=== PATIENT | female | born 1985 | race African-American/Black ===

== ENCOUNTER 2017-12-23 12:21 | Emergency (ER) | payer OTHER ==
[~2017-12-23] VITALS: Ht 162.6 cm; Wt 72.6 kg
[2017-12-23] MEDS ORDERED: KETOROLAC TROMETHAMINE 60 MG/2 ML VIAL IM ONE (12:30)
[2017-12-23] MEDS ORDERED: HYDROCODONE/APAP 10MG-325MG TAB PO ONE (12:30)
[2017-12-23] MEDS ORDERED: CYCLOBENZAPRINE HCL 10 MG TAB PO ONE (12:30)
[2017-12-23 13:12] LABS: CLARITY,URINE CLOUDY (CLEAR); COLOR,URINE YELLOW (YELLOW)
[2017-12-23 13:13] LABS: BILIRUBIN,URINE NEGATIVE (NEGATIVE); KETONES,URINE NEGATIVE (NEGATIVE); LEUKOCYTE ESTERASE ,URINE 2+ (NEGATIVE); NITRITE,URINE NEGATIVE (NEGATIVE); PROTEIN,URINE DIPSTICK 1+ (NEGATIVE); URINE UROBILINOGEN 1 mg/dL (0.2 - 1)
[2017-12-23 13:14] LABS: PREGNANCY TEST, URINE NEGATIVE (NEGATIVE)
[2017-12-23 13:22] LABS: BACTERIA,URINE MANY /HPF; EPITHELIAL CELLS,URINE FEW /LPF; WBC,URINE (MAN) >50 /HPF (0-5)
[2017-12-23 13:23] LABS: TRICHOMONAS,URINE MODERATE
== END 2017-12-23 13:43 | disposition left against medical advice (07) ==
LOC: ER 12:21
DX: M54.5 Low back pain (principal); V43.62XD Car passenger injured in collision with other type car in traffic accident, subsequent encounter
CPT/HCPCS: 81001; 81025; 99282; J1885